=== PATIENT | male | born 1980 | race Caucasian/White ===

== ENCOUNTER 2017-12-03 08:30 | Emergency (ER) | END 2017-12-03 11:28 | disposition home or self-care (01) ==

== ENCOUNTER 2018-09-26 14:51 | Emergency (ER) | payer MEDICAID ==
[~2018-09-26] VITALS: Ht 172.7 cm; Wt 92.3 kg
[~2018-09-26 14:51] MED LIST: ASPI81TA50; CEPH-443 PO; IBUP-1542 PO; MECL12.574 PO; TRAM50TA2 PO
[2018-09-26 15:02] VITALS: Ht 172.7 cm; Wt 92.3 kg
[2018-09-26] MEDS ORDERED: KETOROLAC 30 MG INJ IV STA (17:30)
[2018-09-26] MEDS ORDERED: IBUP-1542 PO (19:26)
[2018-09-26] MEDS ORDERED: TRAM50TA2 PO (19:26)
--- NOTE | 2018-09-26 19:34 | ERD ---
ER Documentation Chief Complaint Chief Complaint back pain radiating to abd pain x 4 days HPI 38-year-old male presents with 4-day history of left flank pain rating to the left abdomen. Denies hematuria, fevers, vomiting. Denies any previous similar history or history of kidney stones. Denies right-sided or lower abdominal pain. ROS All systems reviewed and are negative except as per history of present illness. Medications Home Meds Active Scripts Tramadol HCl (Tramadol HCl) 50 Mg Tablet, 50 MG PO Q4 PRN for PAIN, #20 TAB Prov:DEBBI ROGERS MD 09/26/18 Ibuprofen* (Motrin*) 600 Mg Tab, 600 MG PO Q6, #20 TAB Prov:DEBBI ROGERS MD 09/26/18 Ibuprofen* (Motrin*) 600 Mg Tab, 600 MG PO Q6H PRN for PAIN AND OR ELEVATED TEMP , #30 TAB Prov:YARI BEST. RELAY REPAIRER 12/03/17 Meclizine Hcl* (Antivert*) 12.5 Mg Tab, 12.5 MG PO Q6H PRN for DIZZINESS, #20 TAB Prov:YARI BEST. RELAY REPAIRER 12/03/17 Tramadol HCl (Tramadol HCl) 50 Mg Tab, 50 MG PO Q4 PRN for PAIN, #14 TAB Prov:ZITA BAUTISTA PA-C 02/08/15 Cephalexin* (Keflex*) 500 Mg Capsule, 500 MG PO QID for 7 Days, CAP Prov:ZITA BAUTISTA PA-C 02/08/15 Reported Medications Aspirin (Aspir-Low) 81 Mg Tablet. 07/14/09 Allergies Allergies: Coded Allergies: No Known Drug Allergies (Verified Allergy, Mild, 12/03/17) PMhx/Soc Medical and Surgical Hx: pt denies Medical Hx, pt denies Surgical Hx History of Surgery: No Anesthesia Reaction: No Hx Neurological Disorder: No Hx Respiratory Disorders: No Hx Cardiac Disorders: No Hx Psychiatric Problems: No Hx Miscellaneous Medical Probl: No Hx Alcohol Use: No Hx Substance Use: No Hx Tobacco Use: Yes (1PK/DAY) Smoking Status: Current every day smoker FmHx Family History: No diabetes, No coronary disease, No other Physical Exam Vitals Vital Signs Date Temp Pulse Resp B/P (MAP) Pulse Ox O2 O2 Flow FiO2 Time Delivery Rate 09/26/18 97.8 82 20 139/77 97 15:02 (97) Physical Exam Const: No acute distress Head: Atraumatic Eyes: Normal Conjunctiva ENT: Normal External Ears, Nose and Mouth. Neck: Full range of motion. No meningismus. Resp: Clear to auscultation bilaterally Cardio: Regular rate and rhythm, no murmurs Abd: Soft, non tender, non distended. Normal bowel sounds Skin: No petechiae or rashes Back: No midline tenderness. Mild left flank tenderness left mid abdominal pain and tenderness. No tenderness McBurney's point no Farah sign. Ext: No cyanosis, or edema Neur: Awake and alert Psych: Normal Mood and Affect Result Diagram: 09/26/18172909/26/181729 Results 24 hrs Laboratory Tests Test 09/26/18 17:30 White Blood Count 6.9 10^3/ul Red Blood Count 5.42 10^6/ul Hemoglobin 16.0 g/dl Hematocrit 47.1 % Mean Corpuscular Volume 86.9 fl Mean Corpuscular Hemoglobin 29.5 pg Mean Corpuscular Hemoglobin Concent 34.0 g/dl Red Cell Distribution Width 12.3 % Platelet Count 250 10^3/UL Mean Platelet Volume 10.1 fl Immature Granulocytes % 0.400 % Neutrophils % 50.7 % Lymphocytes % 35.9 % Monocytes % 8.9 % Eosinophils % 3.5 % Basophils % 0.6 % Nucleated Red Blood Cells % 0.0 /100WBC Immature Granulocytes # 0.030 10^3/ul Neutrophils # 3.5 10^3/ul Lymphocytes # 2.5 10^3/ul Monocytes # 0.6 10^3/ul Eosinophils # 0.2 10^3/ul Basophils # 0.0 10^3/ul Nucleated Red Blood Cells # 0.0 10^3/ul Urine Color STRAW Urine Clarity CLEAR Urine pH 5.0 Urine Specific Colt 1.008 Urine Ketones NEGATIVE mg/dL Urine Nitrite NEGATIVE mg/dL Urine Bilirubin NEGATIVE mg/dL Urine Urobilinogen NEGATIVE mg/dL Urine Leukocyte Esterase NEGATIVE Meg/ul Urine Hemoglobin NEGATIVE mg/dL Urine Glucose NEGATIVE mg/dL Urine Total Protein NEGATIVE mg/dl Sodium Level 144 mmol/L Potassium Level 4.1 mmol/L Chloride Level 102 mmol/L Carbon Dioxide Level 28 mmol/L Anion Gap 14 Blood Urea Nitrogen 16 mg/dl Creatinine 0.82 mg/dl Est Glomerular Filtrat Rate mL/min > 60 mL/min Glucose Level 93 mg/dl Calcium Level 9.7 mg/dl Total Bilirubin 0.1 mg/dl Direct Bilirubin 0.00 mg/dl Indirect Bilirubin 0.1 mg/dl Aspartate Amino Transf (AST/SGOT) 44 IU/L Alanine Aminotransferase (ALT/SGPT) 52 IU/L Alkaline Phosphatase 70 IU/L Total Protein 8.6 g/dl Albumin 4.7 g/dl Globulin 3.90 g/dl Albumin/Globulin Ratio 1.20 Lipase 70 U/L Current Medications Medications Dose Sig/Piedad Start Time Status Last (Trade) Ordered Route PRN Stop Time Admin Dose Reason Admin Ketorolac 30 mg ONCE STAT 09/26/18 DC 09/26/18 Tromethamine IV 17:30 17:39 (Toradol) 09/26/18 17:31 Procedures/MDM Patient presents with left-sided abdominal pain and flank pain of uncertain etiology. Urine is negative. CBC and CMP is normal. Creatinine is normal. X-ray Abdomen 1V Interpreted by me: Free Air: None Bowel Gas: Nonspecific Soft Tissue: Normal impression-normal 1 view KUB Limited renal ultrasound shows 7 mm stone in left kidney without hydronephrosis. Patient was given Toradol and 1 L normal saline IV. Patient presents with left flank pain, left abdominal pain with signs of a kidney stone. He has no hydronephrosis or signs of infection. Patient will be treated with tramadol, ibuprofen, instruction for fluids, primary care follow-up and urology evaluation for no passage of stone. He should return for fevers, vomiting, worsening pain, new worsening symptoms. He has no signs of right-sided abdominal pain to suggest hepatobiliary disease, appendicitis, surgical abdomen. Departure Diagnosis: Primary Impression: Kidney stone Additional Impression: Flank pain Condition: Stable Patient Instructions: Flank Pain, Uncertain Cause, Kidney Stone W/ Colic Referrals: [facility] Usted se fernandez hecho un examen mdico de control que le indica que no est en marcus condicin que requiera tratamiento urgente en el Departamento de Emergencia. Un estudio ms profundo y el tratamiento de hill condicin pueden esperar sin ningn riesgo hasta que usted sea atendida/o en el consultorio de hill mdico o marcus clnica. Es responsabilidad suya arreglar marcus nicki para el seguimiento del sally. MANEJO DE CONDICIONES NO URGENTES EN EL FUTURO 1) Si usted tiene un mdico de atencin primaria: Usted debera llamar a hill mdico de atencin primaria antes de venir al departamento de emergencia. Despus de las horas de consultorio, hill doctor o hill asociado/a est disponible por telfono. El mdico o enfermero de tommy en el servicio telefnico puede asesorarle por frances medio para atender el problema, o c aso contrario se puede programar marcus nicki. 2) Si usted no tiene un mdico de atencin primaria: Llame al mdico o clnica de referencia que aparece abajo lewis las horas de consultorio para hacer marcus nicki para que le vean. CLINICAS: [facility] [phone] [address] [facility] [phone] [address] [facility]. [facility] [phone] [address] [facility] [phone] [address] [facility]. [facility] [phone] [address] [facility]. [phone] Additional Instructions: hay un piedre en rinon. Va al hill doctor/ specialista para mas evaluacon en el proximo semana. posiblemente necesita autorizado de hill doctor primario para specialista. Regresa para fiebre, o mas o nueva simptomas- fiebre, vomito , mas dolor. DEBBI ROGERS MD Sep 26, 2018 19:34
[2018-09-26 19:40] VITALS: BP 119/56; PULSE 61; RESP 18
== END 2018-09-26 19:41 | disposition home or self-care (01) ==
LOC: FTE 14:51
DX: N20.0 Calculus of kidney (principal); F17.210 Nicotine dependence, cigarettes, uncomplicated
CPT/HCPCS: 36415; 74018; 76775; 80053; 81003; 83690; 85025; 96374; J1885; Z7502